=== PATIENT | female | born 1990 | race Caucasian/White ===

== ENCOUNTER 2019-10-05 11:18 | Outpatient (CLI) | payer BC, SELFPAY ==
[2019-10-05 11:43] LABS: Hematocrit 35.8 % (37.0-47.0); Hemoglobin 11.6 g/dL (12.0-15.0); Mean Corpuscular HGB Conc 32.4 g/dl (32-36); Mean Corpuscular Hemoglobin 27.2 pg (26-34); Mean Corpuscular Volume 83.8 fl (80-100); Mean Platelet Volume 11.1 fl (7.4-10.4); Platelet Count Result 198 k/mm3 (150-375); Red Blood Count 4.27 M/mm3 (4.2-5.4); Red Cell Distribution Width 13.5 % (11.5-14.5); White Blood Count 8.6 K/mm3 (4.5-10.0)
[2019-10-06 09:29] LABS: Rapid Plasma Reagin Non-Reactive (NonReactive)
== END 2019-10-05 11:19 | disposition home or self-care (01) ==
PROVIDERS: Visit Provider Obstetrics & Gynecology
DX: Z01.818 Encounter for other preprocedural examination (principal)
CPT/HCPCS: 36415; 85027; 86592; 86850; 86900; 86901

== ENCOUNTER 2019-10-06 06:53 | Inpatient (IN) | payer BC, SELFPAY ==
[2019-10-06] VITALS (63 sets, daily range): BP systolic 102–119; BP diastolic 56–85; PULSE 50–74; RESP 12–18; TEMP 36.2–37.1; O2SAT 95–100; BMI 25.1
--- NOTE | 2019-10-06 07:16 | PM.IMHP ---
H&P: HPI History of Present Illness Chief complaint: Repeat C/S Narrative: Chelsea Ruff is a 29 year old female presents for repeat section. History consistent with 1 prior vaginal delivery followed by section for twins. Also desires tubal ligation. We have discussed the permanence failure rate and increased risk of ectopic and regret and she strongly desires to proceed with permanent sterilization. Review of Systems Review of Systems: All systems reviewed & are unremarkable except as noted in HPI and below PMFSH Family History Family History Sibling Epilepsy Social History Social History Substance use: never Gender identity (if verbalized by the patient): Female Spiritual care concerns: No Meds Home Medications and Allergies Home Medications Medication Instructions Recorded Confirmed Type PNV cmb#95-ferrous fumarate-FA 1 tablet PO DAILY 09/20/19 09/20/19 History [] Allergies Allergy/AdvReac Type Severity Reaction Status Date / Time No Known Allergies Allergy Unverified 12/31/12 13:48 Exam Const: General: no acute distress Resp: Auscultation: clear to auscultation bilaterally Cardio: Rate: regular rate Rhythm: regular rhythm GI: Other: FH 38cm FHT 140 Assessment and Plan Assessment and plan (1) Term : Code(s): Z34.90 - Encounter for supervision of normal , unspecified, unspecified trimester Status: Acute (2) Previous delivery affecting : Code(s): O34.219 - Maternal care for unspecified type scar from previous delivery Status: Acute (3) Encounter for female sterilization procedure: Code(s): Z30.2 - Encounter for sterilization Status: Acute Additional Plan Proceed with repeat delivery with bilateral tubal ligation.
[2019-10-06] MEDS: LACTATED RINGERS 1,000 ML 999 ML IV CONT ×2 (07:25→08:15)
--- NOTE | 2019-10-06 07:35 | LDADM ---
This patient, Chelsea Ruff, was admitted to Labor/Delivery/Recovery 119 on 10/06/19 at 06:53. Plans for and pain management were discussed with patient. Patient/family oriented to hospital policies and general routines including ID bracelet, bed and alarms, visiting hours, pain management, procedures, bathroom and other care routines, personal items, smoking policy, room service/diet and guest tray routines, security routines, and visiting hours. Patient/Family are encouraged to report perceived risks to care and to ask questions if they do not understand what they are told or what they should do. See OBIX for further documentation.
[2019-10-06] MEDS: ceFAZolin 2 GM/D5W 50 ML 2 GM/50 ML BAG IVPB (08:53)
[2019-10-06] MEDS: KETOROLAC 30 MG/ML VIAL (*BKC) IV PUSH ×2 (09:23→17:22)
--- NOTE | 2019-10-06 09:28 | P.PCNOB_ITS ---
OB - Delivery Note Procedure Procedure: Procedures Operation Date: 10/06/19 09:00 Actual Procedures Side Surgeon p Repeat Section with Bilateral Tubal Ligation Brett Stephens MD Route of delivery: other (Bilateral tubal ligation) Estimated blood loss (mL): 400 Anesthesia type: Spinal Disposition: floor Narrative: patient prepped draped usual manner for this procedure. Pfannenstiel incision was made and old scar removed. Fascia was extended bilaterally the length of the skin incision and then superiorly and inferiorly dissected away from the rectus muscles. Peritoneum was readily entered bladder flap was developed. Uterus scored with clear fluid noted extended through the lower segment and vertex was delivered without difficulty. Rest of baby was delivered cord clamped and cut and placenta removed manually. Uterus was exteriorized cleared of membranes and clots and closed using 0 Monocryl running interlocking manner with good approximation and hemostasis noted. Bilaterally the tubes were grasped with [place] clamp and doubly ligated using 0 plain suture. The segments of tube were then removed without difficulty. Uterus was turned to the abdomen gutters were clear suture signs fluid and clots and the tubal stumps were noted to be hemostatic and intact. Fascia was approximated using 0 Vicryl from left angle midline right to midline subcutaneous tissue was approximated using 0 plain suture and joão then used to approximate skin edges. Baby Weeks of gestation at delivery: 39 gender: Female Weight (pounds): 7 Weight (ounces): 1 score one minute: 8 score five minutes: 9
[2019-10-06] MEDS: OXYTOCIN 30 UNITS/NS 500 ML 30 UNITS/500 ML BAG 125 UNITS IV CONT (09:30)
[2019-10-06] MEDS: ONDANSETRON INJ 4 MG/2 ML VIAL IV PUSH (11:53)
[2019-10-06] MEDS: METOCLOPRAMIDE HCL INJ 10 MG/2 ML VIAL IV PUSH (14:19)
[2019-10-06] MEDS: MORPHINE SULFATE 4 MG/ML INJ IV PUSH (14:22)
--- NOTE | 2019-10-06 15:28 | PC.NURSE ---
Patient transferred to post room #289 via wheelchair. Support person present. Oriented to unit, room, information board, rooming in, admission packet and security measures. Patient verbalizes understanding.
[2019-10-07] MEDS: SIMETHICONE 80 MG TAB.CHEW PO ×5 (04:17→21:44)
[2019-10-07] MEDS: IBUPROFEN 600 MG TABLET PO ×3 (04:18→17:42)
[2019-10-07 04:20] VITALS: BP 115/82; PULSE 77; RESP 16; TEMP 36.4
[2019-10-07 05:36] LABS: Basophils Percent Auto 0.2 % (0.2-1.2); Eosinophils Absolute Auto 0.1 K/mm3 (0-0.3); Eosinophils Percent Auto 0.5 % (0-4.4); Hemoglobin 10.8 g/dL (12.0-15.0); Immature Granulocyte Absolute 0.05 K/mm3 (0.00-0.031); Immature Granulocyte Percent A 0.5 % (0-0.5); Lymphocytes Percent Auto 13.7 % (18.3-44.2); Mean Corpuscular HGB Conc 31.8 g/dl (32-36); Mean Corpuscular Hemoglobin 26.9 pg (26-34); Mean Corpuscular Volume 84.6 fl (80-100); Mean Platelet Volume 11.5 fl (7.4-10.4); Monocytes Absolute Auto 0.7 K/mm3 (0.1-0.6); Monocytes Percent Auto 6.8 % (2.6-8.5); Neutrophils Absolute Auto 7.4 K/mm3 (1.3-6.7); Neutrophils Percent Auto 78.3 % (45.5-73.1); Platelet Count Result 168 k/mm3 (150-375); Red Blood Count 4.02 M/mm3 (4.2-5.4); Red Cell Distribution Width 13.6 % (11.5-14.5); White Blood Count 9.5 K/mm3 (4.5-10.0)
--- NOTE | 2019-10-07 06:30 | PC.NURSE ---
PT introductions made and plan of care discussed per post op c section, pain management, breast feeding, daily care activities. PT verbalized understanding of such care.
[2019-10-07 08:00] VITALS: BP 113/70; PULSE 70; RESP 18; TEMP 37.4; O2SAT 96
--- NOTE | 2019-10-07 10:42 | P.DS_ITS ---
DS: Diagnosis Admitting Diagnosis Admitting Diagnosis: Encounter for supervision of normal , unspecified, unspecified trimester OB - DS: Summary OB Procedures : None OB Procedures Intrapartum: and Tubal ligation OB Procedures: : None Peripartum Data Procedures: Procedures Operation Date: 10/06/19 09:00 Actual Procedures Side Surgeon p Repeat Section with Bilateral Tubal Ligation Brett Stephens MD Time Spent with Patient Time attestation: Total time spent providing and/or coordinating discharge services: DS: Data Data Completed and Pending Pending studies at discharge: Pending at discharge 10/06/19 09:19 Surgical [PTH] Routine Labs on day of discharge: Labs from last 24 hours 10/07/19 04:23 WBC 9.5 RBC 4.02 L Hgb 10.8 L Hct 34.0 L MCV 84.6 MCH 26.9 MCHC 31.8 L RDW 13.6 Plt Count 168 MPV 11.5 H Immature Gran % (Auto) 0.5 Neut % (Auto) 78.3 H Lymph % (Auto) 13.7 L [place] % (Auto) 6.8 Eos % (Auto) 0.5 Baso % (Auto) 0.2 Lymph # (Auto) 1.30 [place] # (Auto) 0.7 H Eos # (Auto) 0.1 Baso # (Auto) 0.0 Abs Immat Gran (auto) 0.05 H Absolute Neuts (auto) 7.4 H Absolute Nucleated RBC 0.0 Nucleated RBC % 0.0 Discharge Plan Discharge Consulting providers: Yaya Simms Discharging Clinician: Brett Stephens Patient Disposition: Home, Self-Care Activity: as tolerated Diet: as tolerated Wound Care Instructions: incision open to air Discharge Instructions: office friday for staple removal Patient Instructions: Antibiotic Form Stand Alone Forms: General Discharge Information Follow-up/Referrals: Brett Stephens MD [Physician] - 3 Weeks Discharge Medications: New hydrocodone-acetaminophen 5-325 mg Tablet 1 tab PO Q3H PRN (Reason: Moderate Pain (4-6)) Qty: 20 RF: 0 ibuprofen 600 mg Tablet 600 mg PO Q6H PRN (Reason: Cramping) Qty: 30 RF: 0 Continued PNV cmb#95-ferrous fumarate-FA [] 28 mg iron- 800 mcg Tablet 1 tablet PO DAILY RF: 0 Date of admission: 10/06/19 06:53 Primary Care Provider: PHYSICIAN,TILE MECHANIC HELPER Admitting Provider: Brett Stephens Attending physician on admission: Brett Stephens
[2019-10-07] MEDS: DOCUSATE SODIUM 100 MG CAPSULE PO ×2 (11:25→17:42)
[2019-10-07] MEDS: MULTIVIT/MIN/PREN/FOL AC/IRON TABLET 1 TAB PO (11:26)
[2019-10-07] MEDS: LANOLIN (LANSINOH) 7.5 GM CREAM 1 APPLIC TOPICAL (11:28)
[2019-10-07] MEDS: TETANUS,DIPHTHERIA,AC PERTUSSIS ADULT (0.5 ML) BOOSTRIX IM (11:29)
[2019-10-07 11:30] VITALS: PULSE 70; RESP 18; O2SAT 96
--- NOTE | 2019-10-07 11:45 | PC.NURSE ---
Consulted with patient, mother reports infant has been sleepy and difficult to latch. Mother felt some discomfort with nursing, and was on and off several times during the feedings. Reviewed infant feeding cues, frequencies, duration of feedings, feeding elimination flow sheet, and signs of adequate intake. Demonstrated stimulation techniques to wake for feeding. Assisted with infant to breast. Reviewed positioning/alignment in cross cradle, holding breast in U hold and guided asymmetrical latch on. was able to latch correctly with first attempt. nursed eagerly, with steady draws and frequent swallowing noted. Reviewed signs of a correct latch, effective nursing and suck swallow ratio. Infant was able to maintain latch without discomfort to mother. Nipple care reviewed. Advised to stimulate during feeding to increased intake and assist with maintaining deep latch with consistent suck swallow. Reviewed holding breast during entire feeding will also assist keeping infant latched deeply and in correct alignment for feeding. Instructed mother to call out for RN assistance if she is unable to latch infant for feeding or she has discomfort with nursing. Instructed feeding should be initiated three hours from start of last feeding or if feeding cues are noted before. Mother voiced understanding of information shared.
--- NOTE | 2019-10-07 17:45 | WPDANLDPN2 ---
Anes-Prog Note L&D Date/Time: 10/07/19 17:45 Comfortable throughout: section Neuraxial method: spinal Epidural/Spinal procedure site: clean & non-tender Neuro status: Neuro function grossly intact. Cardiovascular status: normal Respiratory status: normal Airway patency: baseline Mental status: baseline Post-Op hydration status: normal Vital Signs: Last Vital Signs Temp 37.4 C 10/07/19 08:00 Pulse 70 10/07/19 08:00 Resp 18 10/07/19 08:00 BP 113/70 10/07/19 08:00 Pulse Ox 96 10/07/19 08:00 I/O: Intake & Output 10/07/19 10/07/19 10/07/19 07:59 15:59 23:59 Intake Total 1200 Output Total 1900 Balance -700 Post-procedural complaints: none Patient feedback: Patient satisfied with anesthetic care.
--- NOTE | 2019-10-07 17:45 | WPDANLDNPN2 ---
Anes-Prog Note L&D-Neuraxial Date/Time: 10/07/19 17:45 Neuraxial medications: intrathecal PF morphine Opiod-related complaints: none Patient feedback: Patient satisfied with post-operative pain management.
[2019-10-07 19:28] VITALS: BP 113/63; PULSE 80; RESP 16; TEMP 36.1
[2019-10-08] MEDS: IBUPROFEN 600 MG TABLET PO ×2 (04:45→10:28)
[2019-10-08] MEDS: SIMETHICONE 80 MG TAB.CHEW PO ×2 (04:45→10:23)
--- NOTE | 2019-10-08 08:00 | PC.NURSE ---
PT introductions made and plan of care discussed per post op c section, pain management, breast feeding, daily care activities and pending discharge to home. PT verbalized understanding of such care.
[2019-10-08 08:45] VITALS: BP 115/66; PULSE 63; RESP 18; TEMP 36.1; O2SAT 98
[2019-10-08] MEDS: MULTIVIT/MIN/PREN/FOL AC/IRON TABLET 1 TAB PO (10:23)
[2019-10-08] MEDS: DOCUSATE SODIUM 100 MG CAPSULE PO (10:23)
[2019-10-08 10:30] VITALS: PULSE 63; RESP 18; O2SAT 98
--- NOTE | 2019-10-08 12:45 | PC.NURSE ---
PT received discharge instructions per protocol and verbalized understanding of such instructions
--- NOTE | 2019-10-08 12:45 | PC.NURSE ---
Patient was given the opportunity to view the discharge video Mother & Baby Care, The First Two Weeks and to ask questions. Patient declined viewing the video and has been given the mother/baby guide for home reference.
--- NOTE | 2019-10-08 13:08 | PC.NURSE ---
PT discharged to home ambulatory accompanied by spouse and to waiting car. Follow up appts confirmed
[2019-10-09 09:12] VITALS: BP 123/79; PULSE 64; RESP 16; TEMP 37.1
--- NOTE | 2019-11-03 12:48 | PM.OBDSVD ---
DS: Admitting Diagnosis Admitting Diagnosis Admitting Diagnosis: Encounter for supervision of normal , unspecified, third trimester OB - DS: Summary OB Procedures : None OB Procedures Intrapartum: and Tubal ligation OB Procedures: : None Peripartum Data Procedures: Procedures Operation Date: 10/06/19 09:00 Actual Procedures Side Surgeon p Repeat Section with Bilateral Tubal Ligation Brett Stephens MD Time Spent with Patient Time attestation: Total time spent providing and/or coordinating discharge services: DS: Data Data Completed and Pending Completed studies during hospitalization: Pending at discharge 10/06/19 09:19 Surgical [PTH] Routine Discharge Plan Discharge Consulting providers: Yaya Simms Discharging Clinician: Brett Stephens Patient Disposition: Home, Self-Care Activity: as tolerated Diet: as tolerated Wound Care Instructions: incision open to air Discharge Instructions: Education: Mom and Baby Guide Given to: Mother Follow-Up: Call your delivering provider's office for an appointment to be seen in: 1 Week Mom and baby should come to the [facility] for the follow-up appointment. Appointment Date/Time: October 09, 2019 at 9:00 am What to expect at your follow-up visit: Blood Pressure Check Call [phone] if you are unable to keep your appointment time. BREAST CARE: 1. Wear a snug supportive bra. 2. For engorgement discomfort: Breast Feeding: A. Apply warm moist washcloths B. Express milk as needed to relieve engorgement C. Wear loose clothing Bottle Feeding: A. May apply ice packs 3. For sore nipples: A. Identify correct latch-on B. Apply warm moist washcloths before and after nursing C. Air dry nipples after nursing D. May apply Lansin[place] cream to nipples ABDOMINAL INCISION: (if applicable) 1. Allow incision to air dry 2. Do NOT use lotions for powders on your incision 3. When showering, allow soap and water to run over the incision, but do not wash incision PERINEAL CARE: 1. Until bleeding stops, use your bharathi bottle after urinating 2. Change your pad frequently throughout the day 3. You may take sitz baths several times a day (fill your bathtub with warm water and soak for 20 minutes.) Do NOT bathe in the water 4. No tub baths until seen by your physician - You may shower ACTIVITY: 1. Rest as much as possible. 2. Do not exercise or lift anything heavier than your baby (such as laundry or other children.) 3. Avoid stairs or driving as much as possible. 4. Do not put anything into the vagina. No douching, tampons, or sexual activity until seen by physician. NOTIFY PHYSICIAN IF YOU HAVE ANY QUESTIONS OR IF ANY OF THE FOLLOWING SYMPTOMS OCCUR: 1. If your incision becomes red, swollen, or more painful than what you have experienced in the hospital. 2. If your vaginal bleeding becomes foul smelling. 3. If your vaginal bleeding becomes more heavy than a period or if your bleeding changes from pink to bright red. However, you may pass an occasional walnut-sized clot once or twice for the first week . 4. If you experience a sharp, shooting pain in you calves. 5. If you discover a hard, reddened area on your breast or if you experience flu-like symptoms. 6. Call for temp 100.4 or greater DIET: 1. Eat regular, well-balanced meals. 2. Drink plenty of fluids daily. If , drink to thirst.office friday for staple removal Patient Instructions: Antibiotic Form Stand Alone Forms: General Discharge Information Follow-up/Referrals: Brett Stephens MD [Physician] - 3 Weeks Discharge Medications: New hydrocodone-acetaminophen 5-325 mg Tablet 1 tab PO Q3H PRN (Reason: Moderate Pain (4-6)) Qty: 20 RF: 0 ibuprofen 600 mg Tablet 600 mg PO Q6H PRN (Reason: C
== END 2019-10-08 13:08 | disposition home or self-care (01) | DRG 785 ==
LOC: ANHLDR 10:11 → ANHOB2 12:05
PROVIDERS: Admitting Provider Obstetrics & Gynecology; Visit Provider Obstetrics & Gynecology
PROC: 10D00Z1 Extraction of Products of Conception, Low, Open Approach (ICD-10-PCS; CPT 59514; principal; 2019-10-06 09:00)
DX: O34.211 Maternal care for low transverse scar from previous cesarean delivery (principal); Z37.0 Single live birth; Z3A.39 39 weeks gestation of pregnancy; O99.824 Streptococcus B carrier state complicating childbirth; Z30.2 Encounter for sterilization; O99.02 Anemia complicating childbirth; D64.9 Anemia, unspecified
CPT/HCPCS: 36415; 85025; 85027; 86592; 86762; 86850; 86900; 86901; 88302; 90715; A9270; J0131; J0690; J1885; J2270; J2274; J2370; J2405; J2590; J2765; J3010; J7120

== ENCOUNTER 2025-04-21 10:04 | Outpatient (CLI) | payer OTHER, SELFPAY ==
--- NOTE | ~2025-04-21 | US_ITS ---
EXAM/PROCEDURE: US pelvic complete w TV HISTORY: menorrhagia with irregular cycle COMPARISON: None available. TECHNIQUE: Pelvic ultrasound LMP: April 21, 2025 FINDINGS: The uterus measures 10.0 x 4.5 x 5.5 cm and appears normal. Endometrial stripe: 6 mm Right ovary: 2.3 x 1.0 x 2.6 cm and normal in echotexture and vascular flow. Left ovary: Not clearly seen. Complex area possibly representing complex cyst measuring 2.9 x 2.4 x 3.6 centers. No free fluid is seen. IMPRESSION: 1. Possible 3.6 cm complex left ovarian or adnexal cyst. Correlate with follow- up pelvic ultrasound in 6-8 weeks or sooner if clinically appropriate. 2. Endometrial stripe is within normal limits. Reviewed, dictated and finalized at location A. NESS SPA MANAGER
== END 2025-04-21 10:05 | disposition home or self-care (01) ==
PROVIDERS: PCP Emergency Medicine; Visit Provider Emergency Medicine
DX: N83.292 Other ovarian cyst, left side (principal); N92.1 Excessive and frequent menstruation with irregular cycle
CPT/HCPCS: 76830; 76856